=== PATIENT | female | born 2005 | race Caucasian/White ===

== ENCOUNTER 2023-09-16 18:11 | Emergency (ER) | payer OTHER, SELFPAY ==
[2023-09-16 18:20] VITALS: BP 115/74
[2023-09-16] MEDS: TYLENOL 1000 MG PO (21:03)
[2023-09-16] MEDS: MOTRIN 600 MG PO (21:03)
[2023-09-16] MEDS: FLAGYL 500 MG PO (21:04)
[2023-09-16] MEDS: CEFTIN 500 MG PO (21:14)
--- NOTE | 2023-09-16 21:14 | ED.GENMED ---
History of Present Illness
General
Chief Complaint: Cold/Flu/URI Symptoms
Source: patient and family
Exam Limitations: none
Time Seen by Provider: 09/16/23 19:37
Nursing documentation reviewed up to this point in time: agreed with
Travel History
Have you had any contact with someone who has COVID-19?: No
Do you have any symptoms of coronavirus? Fever > 100 degrees, chills, cough, shortness of breath, sore throat, loss of taste or smell, muscle aches, or headache?: No
History of Present Illness
History of Present Illness:
18-year-old female presenting to the emergency department today with concerns of swelling just in front of the left ear worsening over the past few days went to the urgent care was tested for flu COVID and strep all negative. Worsening symptoms
came here. Has had a low-grade temperature over the past day or so. No trouble swallowing or breathing.
Review of Systems
Review of Systems
Allergies reviewed?: Yes
All Other Systems: ROS reviewed and negative except as documented in HPI and ROS
Phy Exam
Physical Exam
Physical Exam:
GENERAL: Alert , in no apparent distress
EYE: pupils equal and reactive
NECK: Supple, no significant adenopathy.
ENT: Swelling to the left posterior mandibular region at the site of the parotid. No signs of fluctuance or induration normal range of motion of the neck normal posterior pharynx o/p clr, mmm.
CARDIAC: Regular rate and rhythm .
LUNGS: Clear breath sounds bilaterally, no acute respiratory distress, no wheezes/rales/rhonchi
ABDOMEN: Soft, without focal tenderness, no r/g, no cvat
NEUROLOGICAL: Alert and oriented, no focal neuro deficits
SKIN: Warm and dry, skin intact.
MUSCULOSKELETAL: No edema, well perfused.
PSYCH: Normal and appropriate interaction.
Course
Orders/Labs/Results
Orders:
Orders
09/16/23 20:45
Acetaminophen [Tylenol] 1,000 mg PO NOW STA
Ibuprofen [Motrin] 600 mg PO NOW STA
MetroNIDAZOLE [Flagyl] 500 mg PO NOW STA
09/16/23 21:00
Cefuroxime Axetil [Ceftin] 500 mg PO NOW STA
09/16/23 21:02
Mumps Virus IgM [S] Urgent
Vital Signs
Initial and Last Documented VS:
Initial Vital Signs
Temp Pulse Resp BP Pulse Ox
99.0 F 118 18 115/74 97
09/16/23 18:20 09/16/23 18:20 09/16/23 18:20 09/16/23 18:20 09/16/23 18:20
Last Documented Vital Signs
Temp Pulse Resp BP Pulse Ox
101.1 F H 108 18 120/70 100
09/16/23 21:30 09/16/23 21:30 09/16/23 21:30 09/16/23 21:30 09/16/23 21:30
MDM/Problems Addressed
MDM/Problems Addressed:
18-year-old female presenting to the emergency department today with concerns of findings consistent with parotitis. Plan for treatment with antibiotic otherwise was tested for mumps stable for outpatient management tolerating by mouth return
precautions given.
*Critical Care Note
Total Time (30-74mins, 75-104mins- exclusive of procedures): Not Applicable
ED Attending Note
-
Portions of this chart may have been created with voice recognition software.� Occasional wrong word or��sound alike� substitutions may have occurred due to the inherent limitations of voice recognition software.
Discharge Plan
Departure
Patient Disposition: Home (Routine Discharge)
Date of Disposition: 09/16/23
Time of Disposition: 21:14
Patient with high blood pressure during this ER visit?: No
Condition: Good
Covid-19: Not Applicable
Discharge Problem:
Acute parotitis
Instructions: Parotitis
Prescriptions:
New
cefuroxime axetil 500 mg tablet
500 mg PO DAILY 7 Days Qty: 7 0RF
metronidazole 500 mg tablet
500 mg PO BID 7 Days Qty: 14 0RF
No Action
clindamycin HCl 300 MG capsule
300 mg PO TID
Referrals:
Sumi Moe MD [Family Provider] -
Stand Alone Forms: Back to School, Return to Work
Activity Restrictions/Additional Instructions:
You came to the emergency department today with concerns of swelling to your left jaw. This appears to be consistent with parotitis. You were written for antibiotics to treat as this could be bacterial. This additionally could be from mumps.
Please use sour candies to help stimulate salivary secretion. Please take the antibiotics as prescribed. Return to the emergency department for any worsening, new or concerning symptoms.
Interventions
Interventions:
*Risk Screen - Suicide Last Done: 09/16/23 19:30
*General Assessment Last Done: 09/16/23 19:30
*Neglect/Abuse Screening Last Done: 09/16/23 19:30
ED- Fall Risk Assessment Last Done: 09/16/23 19:30
*ED COVID-19 Vaccine History Last Done: 09/16/23 19:30
*Nursing Disposition Last Done: 09/16/23 21:30
ED- Pulmonary Assessment Last Done: 09/16/23 19:30
Discharge Date and Time
Discharge Date/Time: 09/16/23 21:30
[2023-09-16 21:30] VITALS: BP 120/70
[2023-09-18 22:59] LABS: Mumps Virus IgM 0.27 IV (<=0.79)
== END 2023-09-16 21:30 | disposition home or self-care (01) ==
LOC: EMR 18:11
PROVIDERS: Physician Assistant; EMERGENCY PHYSICIAN Emergency Medicine; FAMILY PHYSICIAN Internal Medicine
DX: K11.21 Acute sialoadenitis (principal)
CPT/HCPCS: 99283; 86735